=== PATIENT | female | born 1940 | race Caucasian/White ===

== ENCOUNTER 2025-05-12 09:22 | Outpatient (CLI) | payer MEDICARE ==
[2025-05-12 10:13] LABS: Estimated GFR - POC 72.0
== END 2025-05-12 09:23 | disposition home or self-care (01) ==
LOC: CSHMRI 09:22
PROVIDERS: ATTEND Radiology Radiation Oncology
DX: D18.09 Hemangioma of other sites (principal); M47.26 Other spondylosis with radiculopathy, lumbar region
CPT/HCPCS: 36415; 72158; 82565